=== PATIENT | male | born 1960 | race Caucasian/White ===

== ENCOUNTER 2016-07-03 20:23 | Observation (INO) | payer BC, OTHER ==
[~2016-07-03] VITALS: Ht 185.4 cm; Wt 115.7 kg
[2016-07-03 22:14] LABS: HEMOGLOBIN 14.6 gm/dl (14.0-17.5); RED BLOOD COUNT 4.9 M/UL (4.20-5.50); WHITE BLOOD COUNT 9.6 K/UL (4.5-11.0)
[2016-07-03 22:35] LABS: BUN/CREATININE RATIO 15 (0-10)
[2016-07-04 05:07] LABS: HEMOGLOBIN 13.2 gm/dl (14.0-17.5); RED BLOOD COUNT 4.44 M/UL (4.20-5.50); WHITE BLOOD COUNT 8.7 K/UL (4.5-11.0)
[2016-07-04 05:22] LABS: BUN/CREATININE RATIO 18 (0-10)
[2016-07-05 06:00] LABS: HEMOGLOBIN 13.3 gm/dl (14.0-17.5); RED BLOOD COUNT 4.5 M/UL (4.20-5.50)
[2016-07-05 06:17] LABS: BUN/CREATININE RATIO 13 (0-10)
[2016-07-05 06:23] LABS: WHITE BLOOD COUNT 6.3 K/UL (4.5-11.0)
[2016-07-06 04:54] LABS: HEMOGLOBIN 12.9 gm/dl (14.0-17.5); RED BLOOD COUNT 4.42 M/UL (4.20-5.50); WHITE BLOOD COUNT 5.4 K/UL (4.5-11.0)
[2016-07-06 05:21] LABS: BUN/CREATININE RATIO 13 (0-10)
[2016-07-06] MEDS ORDERED: CLINDAMYCIN HC300 MG PO (21:06)
== END 2016-07-06 21:23 | disposition home or self-care (01) ==
LOC: ER1 20:23 → MED SURG 4 07-04 00:20 → ZEROF 07-04 00:20 → MED SURG 4 07-04 00:20
PROVIDERS: Internal Medicine; Specialist/Technologist Athletic Trainer; ADMIT Internal Medicine
DX: L03.115 Cellulitis of right lower limb (principal); Z90.89 Acquired absence of other organs; Z88.8 Allergy status to other drugs, medicaments and biological substances
CPT/HCPCS: 36415; 73700; 73701; 80048; 80053; 82550; 82553; 83605; 83735; 83874; 84100; 84484; 85025; 85027; 85610; 85730; 87040; 87070; 87077; 87186; 87205; 90714; 93005; 96361; 96374; 96375; 99284; G0378; J0295; J1650; J3370; J7030; J7050; J7070; Q9962